=== PATIENT | female | born 1980 | race Hispanic/Latino ===

== ENCOUNTER → 2016-12-22 | Outpatient (REF) | payer OTHER ==
[2016-12-23 11:44] LABS: ALBUMIN 3.9 GM/DL (3.2-5.2); ALBUMIN/GLOBULIN RATIO 1.08 (1.00-1.93); ALKALINE PHOSPHATASE 76 U/L (45-117); ALT/SGPT 19 U/L (12-78); ANION GAP 7 MEQ/L (8-16); AST/SGOT 6 U/L (15-37); BILIRUBIN,TOTAL 0.3 MG/DL (0.2-1.0); BLOOD UREA NITROGEN 8 MG/DL (7-18); CALCIUM LEVEL 9.1 MG/DL (8.5-10.1); CARBON DIOXIDE LEVEL 27 MEQ/L (21-32); CHLORIDE LEVEL 106 MEQ/L (98-107); CREATININE FOR GFR 0.61 MG/DL (0.55-1.02); GLOMERULAR FILTRATION RATE > 60.0 (>60); GLUCOSE, FASTING 87 MG/DL (70-105); POTASSIUM SERUM 4.2 MEQ/L (3.5-5.1); SODIUM LEVEL 140 MEQ/L (136-145); TOTAL PROTEIN 7.5 GM/DL (6.4-8.2)
[2016-12-23 12:05] LABS: BASO # 0.1 K/mm3 (0.0-0.2); EOS # 0.2 K/mm3 (0.0-0.50); EOS % 2.2 % (0.0-3.0); LARGE UNSTAINED CELL # 0.1 K/mm3 (0.0-0.4); LARGE UNSTAINED CELL % 1.7 % (0.0-4.0); LYMPH # 2.3 K/mm3 (1.5-4.5); LYMPH % 30.4 % (24.0-44.0); MEAN CORPUSCULAR HEMOGLOBIN 25.4 pg (27.0-33.0); MEAN CORPUSCULAR HGB CONC 31.8 g/dl (32.0-36.5); MEAN CORPUSCULAR VOLUME 79.8 fl (80.0-96.0); MONO # 0.4 K/mm3 (0.0-0.8); MONO % 4.7 % (0.0-5.0); NEUTROPHILS # 4.6 K/mm3 (1.8-7.7); PLATELET COUNT, AUTOMATED 228 k/mm3 (150-450); RED CELL DISTRIBUTION WIDTH 14.9 % (11.5-14.5); WHITE BLOOD COUNT 7.6 K/mm3 (4.0-10.0)
== END ==
LOC: M SFHCCLAY 14:22
PROVIDERS: ATTEND Family Medicine
DX: R10.11 Right upper quadrant pain (principal)

== ENCOUNTER → 2017-01-18 | Outpatient (CLI) | payer OTHER ==
[~2017-01-18] MED LIST: GASTROGRAFIN SOLUTION 30ML (Q9963) As Ordered ONE; ISOVUE-370 76% 100ML VIAL (Q9967) As Ordered ONE
--- NOTE | 2017-01-19 06:16 | REP ---
CT ABDOMEN AND PELVIS WITHOUT AND WITH IV AND ORAL CONTRAST: 01/18/2017. Clinical history: Status post bile duct reconstruction, hepaticojejunostomy. Technique: Oral Gastrografin mixture 10 ml in 290 ml of flavored water for two doses per our bowel contrast protocol with scanning through the abdomen after oral contrast and following IV contrast bolus, 100 ml of Isovue 370 and scanning through the abdomen pelvis with both coronal and sagittal reconstructions. Findings: There were no prior studies available. CT abdomen: The lung bases are clear. The heart is not enlarged. There is no pericardial thickening or effusion. I see no hiatal hernia. The liver shows a 1 cm cyst subcapsular region in the right hepatic lobe. No hepatomegaly with a vertical diameter of 15 cm in the midclavicular line for that right hepatic lobe. No other hepatic cyst or solid hepatic mass. There is no intrahepatic biliary dilatation. Clips in the gallbladder fossa from prior cholecystectomy. Oral contrast in small bowel loops near the jairo hepatis from the hepaticojejunostomy. Pancreas unremarkable. Adrenal glands are normal. Kidneys show function without obstruction, stone, mass or cyst on the right. There is a tiny calcification on the left representing a lower pole stone about 3 mm. No hydronephrosis or hydroureter on either side. The aorta is normal. There is no periaortic or other retroperitoneal pathologic sized lymphadenopathy. I see no ascites in the abdomen. Lung window review of all CT slices shows no perforation or free air. Small bowel loops are contrast or fluid-filled but not abnormally dilated. There are anastomotic sutures in bowel loops in the right mid abdomen. Colon shows scattered stool and gas without definite colitis or diverticulitis. Bone windows show lumbar and lower thoracic vertebral levels, their posterior elements and visualized lower ribs intact. CT pelvis: The bony hips, pelvis, sacrum, SI joints and lumbosacral junction were grossly intact. SI joints, symphysis pubis and pubic rami intact. There is a bone island in the anterior column of the acetabulum on the left. The bladder is nearly empty. Uterus anteverted, not grossly enlarged. There is no adnexal mass or pelvic free fluid. No distal ureteral dilatation or stone nor bladder stone. The cecum was unremarkable. There are no inflammatory changes adjacent to it. A normal-appearing appendix is noted. Distal left colon, sigmoid and rectum unremarkable. Small bowel loops in the deep pelvis normal. No ventral or inguinal hernia nor pathologic sized inguinal adenopathy. Impression: 1. Status post cholecystectomy with small bowel loops adjacent to the liver without abnormal fluid collection, intrahepatic biliary dilatation, generalized ascites or free air. Anastomotic sutures are also seen separately in a group of small bowel loops in the right abdomen below the hepaticojejunostomy described. 2. Small cyst in the subcapsular dome of the right lobe of the liver. The liver, spleen, pancreas, adrenal glands and kidneys without significant finding. A 3 mm stone lower pole left kidney not obstructing. There is no hydronephrosis or hydroureter. 3. Colon and remainder of small bowel loops unremarkable. No pelvic abnormality. Signed by Ezequiel Tamez MD 01/19/2017 10:46 A
== END ==
LOC: M RAD 16:14
PROVIDERS: ATTEND Transplant Surgery
DX: Z98.890 Other specified postprocedural states (principal); S36.13XS Injury of bile duct, sequela; K76.89 Other specified diseases of liver; N20.0 Calculus of kidney; X58.XXXS Exposure to other specified factors, sequela; Y92.9 Unspecified place or not applicable
CPT/HCPCS: 74178; Q9963; Q9967

== ENCOUNTER → 2017-04-19 | Outpatient (REF) | payer OTHER ==
[2017-04-19 18:59] LABS: ALBUMIN 3.8 GM/DL (3.2-5.2); ALBUMIN/GLOBULIN RATIO 1.23 (1.00-1.93); ALKALINE PHOSPHATASE 70 U/L (45-117); ALT/SGPT 17 U/L (12-78); AMYLASE 46 U/L (25-115); AST/SGOT 7 U/L (15-37); BILIRUBIN,DIRECT < 0.1 MG/DL (0.0-0.2); BILIRUBIN,TOTAL 0.3 MG/DL (0.2-1.0); TOTAL PROTEIN 6.9 GM/DL (6.4-8.2)
== END ==
LOC: M SFHCCLAY 11:40
PROVIDERS: ATTEND Family Medicine
DX: Z01.419 Encounter for gynecological examination (general) (routine) without abnormal findings (principal); R10.11 Right upper quadrant pain